=== PATIENT | male | born 2005 | race Hispanic/Latino ===

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

== ENCOUNTER 2024-05-24 12:14 | Emergency (ER) | payer BC, MEDICAID ==
[~2024-05-24] VITALS: Ht 172.7 cm; Wt 78.5 kg
[2024-05-24] MEDS: ibuPROFEN 800 MG TAB PO ONE (13:37)
[2024-05-24] MEDS: dexaMETHasone SOD PHOSPHATE 4 MG/ML 1ML VIAL IM ONE (13:38)
[2024-05-24 13:53] VITALS: BP 120/80; PULSE 80; RESP 18; TEMP 98; O2SAT 99
[2024-05-24] MEDS ORDERED: METH4TAB3 PO (14:37)
[2024-05-24] MEDS ORDERED: IBUP-2077 PO (14:37)
== END 2024-05-24 14:53 | disposition home or self-care (01) ==
LOC: EDH 12:14
DX: R51.9 Headache, unspecified (principal); Z20.822 Contact with and (suspected) exposure to COVID-19; Z88.0 Allergy status to penicillin; Z98.890 Other specified postprocedural states
CPT/HCPCS: 99284; 87426; 87880; 96372; J1100